=== PATIENT | male | born 1955 | race Caucasian/White ===

== ENCOUNTER 2021-03-23 14:08 | Emergency (ER) | payer OTHER, SELFPAY ==
[2021-03-23] VITALS (10 sets, daily range): BP systolic 111–165; BP diastolic 68–101; PULSE 67–86; RESP 12–26; TEMP 36.7; O2SAT 97–99
--- NOTE | ~2021-03-23 | CT_ITS ---
EXAMINATION: CT abdomen pelvis w con DATE: 03/23/2021 18:15 INDICATION: Intermittent abdominal pain. TECHNIQUE: Computed tomography (CT) of the abdomen and pelvis was performed with 100 mL Omnipaque 350 intravenous contrast. Automated exposure control and iterative reconstruction technique were employe d. The dose-length product was 930.76 mGy-cm. COMPARISON: CT abdomen and pelvis 12/04/2018, abdomen MRI 03/20/2018 FINDINGS: The visualized portions of the lung bases demonstrate mild atelectasis and mild emphysema. No pleural effusion. The heart size is normal. No pericardial effusion. Again seen is a 2.5 cm cyst i n the liver. The gallbladder, spleen, pancreas, and adrenal glands are normal. There are cysts in the kidneys measuring up to 8 mm on the right. The bladder is distended. The prostate is mildly enlarged . There are no dilated loops of bowel. The appendix is normal. There are changes of umbilical hernia repair. There are no pathologically enlarged lymph nodes. There is no free intraperitoneal fluid. The re is a total right hip arthroplasty. There is moderate lumbar spondylosis. IMPRESSION: 1. No etiology for the patient's symptoms. Reviewed, dictated and finalized at location A.
[2021-03-23 15:20] LABS: Basophils Absolute Auto 0.1 K/mm3 (0.0-0.1); Basophils Percent Auto 0.6 % (0.2-1.2); Eosinophils Absolute Auto 0.2 K/mm3 (0-0.3); Eosinophils Percent Auto 1.3 % (0-4.4); Hematocrit 53.5 % (42.0-52.0); Hemoglobin 18.3 g/dL (14.0-18.0); Immature Granulocyte Absolute 0.08 K/mm3 (0.00-0.031); Immature Granulocyte Percent A 0.7 % (0-0.5); Lymphocytes Absolute Auto 3.56 K/mm3 (0.9-3.2); Mean Corpuscular HGB Conc 34.2 g/dl (32-36); Mean Corpuscular Hemoglobin 31.6 pg (26-34); Mean Corpuscular Volume 92.4 fl (80-100); Mean Platelet Volume 10.6 fl (7.4-10.4); Monocytes Absolute Auto 0.9 K/mm3 (0.1-0.6); Monocytes Percent Auto 8.1 % (2.6-8.5); Neutrophils Absolute Auto 6.7 K/mm3 (1.3-6.7); Neutrophils Percent Auto 58.3 % (45.5-73.1); Platelet Count Result 232 k/mm3 (150-375); Red Blood Count 5.79 M/mm3 (4.6-6.20); Red Cell Distribution Width 11.9 % (11.5-14.5); White Blood Count 11.5 K/mm3 (4.5-10.0)
[2021-03-23 15:23] LABS: Add Urine Microscopic? YES; Appearance Urine Clear (Clear); Bilirubin Urine Negative (Negative); Blood Urine Negative (Negative); Color Urine Straw (Yellow); Glucose Urine UA 3+ mg/dL (Negative); Ketones Urine Negative (Negative); Leukocyte Esterase Ur Negative LEU/UL (Negative); Nitrate Urine Negative (Negative); Protein Urine Negative (Negative); RBC Urine 0-2 /hpf (0-2); Specific Grav Ur 1.028 (1.001-1.035); Squamous Epithelial Cell Urine Rare /hpf (Few); Urobilinogen Urine Negative mg/dL (<2.0); WBC Urine 0-3 /hpf
[2021-03-23 15:28] LABS: Alanine Aminotransferase 48 U/L (4-50); Albumin Level 4.3 g/dL (3.5-5.1); Alkaline Phosphatase 137 U/L (38-126); Anion Gap 9 mmol/L (8-16); Aspartate Amino Transferase 37 U/L (17-59); Bilirubin,Total 0.6 mg/dL (0.2-1.3); Blood Urea Nitrogen 17 mg/dL (9-20); Calcium 9.2 mg/dL (8.4-10.2); Carbon Dioxide 26 mmol/L (22-30); Chloride 98 mmol/L (98-107); Estimated CRCL calculation 96 ml/min; Estimated Glomerular Filt Rate > 60; Glucose 301 mg/dL (65-110); Lipase 60 U/L (23-300); Sodium 133 mmol/L (137-145)
--- NOTE | 2021-03-23 17:28 | ED.ABDPAIN ---
HPI - Abdominal Pain General Chief Complaint: Abdominal Pain Stated Complaint: Elevated Blood sugar Time Seen by Provider: 03/23/21 17:16 History of Present Illness HPI narrative: Patient is a 65-year-old male with history of insulin-dependent diabetes who comes abdominal pain complaining of abdominal pain. The abdominal pain has been present intermittently for last 2 weeks. It is located in the epigastric region and fairly constant and notes that he feels like he is bloated. No relation to p.o. intake. No nausea or vomiting. Admits to previous history of similar symptoms once before due to pancreatitis which was felt to be secondary to the Trulicity. He does not drink alcohol or use any illicit drugs. He denies any fevers. When asked about urinary symptoms he says that he has a hard time urinating but this has been present for a long time and he has a diagnosis of an enlarged prostate. Notes that his home blood sugars have been elevated for the last 3 weeks. He checks it every morning on average, has been as high as 400 at home. He is compliant with his home Jardiance and Toujeo. Notes that he takes oxycodone chronically for his chronic back pain and that is not helping with his current abdominal pain. Denies any known diarrhea or constipation. Related Data Home Medications Medication Instructions Recorded Confirmed amitriptyline 03/23/21 empagliflozin [Jardiance] mg 03/23/21 insulin glargine U-300 conc unit SUBCUT 03/23/21 [Toujeo SoloStar U-300 Insulin] oxycodone-acetaminophen 03/23/21 Allergies Allergy/AdvReac Type Severity Reaction Status Date / Time dulaglutide Allergy Unknown Unknown Verified 03/23/21 17:21 Review of Systems Constitutional: Constitutional: Reports as per HPI, Denies fever(s), Denies night sweats and Denies weakness Cardiovascular: Cardiovascular: Denies chest pain, Denies edema, Denies leg edema, Denies dyspnea and Denies orthopnea Respiratory: Respiratory: Denies cough and Denies dyspnea Gastrointestinal: Gastrointestinal: Reports abdominal pain, Reports bloating, Denies constipation, Denies diarrhea, Denies nausea and Denies vomiting Musculoskeletal: Musculoskeletal: Denies abnormal gait, Denies back pain, Denies numbness and Denies tingling Neurologic: Denies Abnormal speech present, Denies abnormal gait, Denies numbness, Denies tingling and Denies weakness Psychiatric: Psychiatric: Denies homicidal ideation and Denies suicidal ideation Endocrine: Endocrine: Reports as per HPI Exam Const: General: cooperative, healthy appearing, comfortable, no acute distress, well developed, alert, awake and Physically active Orientation/consciousness: patient oriented x3 HENMT: Head: normal to inspection, normocephalic and atraumatic Ears: external ears normal General nose exam: Normal external nose present Eyes: Pupils: Equal, round and reactive pupils present EOM: EOMs intact bilaterally Neck: Neck: normal visual inspection Chest: Chest palpation & inspection: normal inspection of the chest and no tenderness Resp: Effort & Inspection: normal respiratory effort and able to speak in complete sentences Auscultation: clear to auscultation bilaterally Cardio: Rate: regular rate Rhythm: regular rhythm GI: Inspection: normal to inspection GI Palp: Yes abdominal tenderness and Yes Tenderness to palpation present (GI) (Tender to palpate over epigastric region. No right upper quadrant tendernes) : General: Yes no CVA tenderness Back/Spine/Pelvis: Back: no CVA tenderness Skin: General skin exam: normal color and no rashes or lesions noted Lesions: no lesions Neuro: General: patient oriented x3, no focal motor deficits and CN's II-XI intact bilaterally Cranial nerves: Yes Equal, round and reactive pupils present Speech: No Abnormal speech present Extrem: General: normal to inspection and full ROM Psych: Appearance: grossly normal and well kempt Mental Status: mental status grossly normal
--- NOTE | 2021-03-23 18:01 | ECG_ITS ---
Measurements Intervals [place] Rate: 67 P: 36 [place]: 156 QRS: -54 QRSD: 110 T: 63 QT: 418 QTc: 444 Interpretive Statements SINUS RHYTHM INCOMPLETE RIGHT BUNDLE BRANCH BLOCK LEFT ANTERIOR FASCICULAR BLOCK BASELINE ARTIFACT- I, II, AVR, AVF, V1-V6 ABNORMAL ECG Electronically Signed On 03-23-2021 19:07:39 CDT by Papito Watson D.O.
[2021-03-23] MEDS: FAMOTIDINE 20 MG/2 ML VIAL IV PUSH (18:29)
[2021-03-23] MEDS: SIMETHICONE 80 MG TAB.CHEW PO (18:29)
[2021-03-23] MEDS: SUCRALFATE 1 GM TABLET PO (18:29)
[2021-03-23] MEDS: BELLADONNA ALK/PHENOB ELIX 10 ML, MAG HYDROX/ALUMINUM HYD/SIMETH 30 ML, LIDOCAINE HCL 2... PO (18:30)
[2021-03-23] MEDS: LACTATED RINGERS 1,000 ML 999 ML IV CONT (18:33)
[2021-03-23 18:52] LABS: Troponin I < 0.012 ng/mL (0.000-0.034)
--- NOTE | 2021-03-23 19:22 | PC.NURSE ---
Report received and care of pt assumed at this time.
== END 2021-03-23 21:33 | disposition home or self-care (01) ==
PROVIDERS: Emergency Medicine; Physician Assistant Medical; Emergency Provider General Practice; PCP Family Medicine
DX: R10.13 Epigastric pain (principal); K29.70 Gastritis, unspecified, without bleeding; E11.65 Type 2 diabetes mellitus with hyperglycemia; Z79.4 Long term (current) use of insulin; R94.31 Abnormal electrocardiogram [ECG] [EKG]
CPT/HCPCS: 36415; 74177; 80053; 81001; 83690; 84484; 85025; 93005; 96361; 96374; 99284; A9270; J7120; Q9967

== ENCOUNTER 2021-08-06 11:28 | Emergency (ER) | payer OTHER, SELFPAY ==
[2021-08-06] VITALS (7 sets, daily range): BP systolic 121–187; BP diastolic 89–103; PULSE 75–102; RESP 11–23; TEMP 36.6; O2SAT 96–99
--- NOTE | ~2021-08-06 | CT_ITS ---
EXAMINATION: CTA brain carotid EXAM DATE: 08/06/2021 12:11 INDICATION: Right-sided facial droop, hemiparesis. TECHNIQUE: Spiral CTA of the carotid arteries was performed with intravenous injection 100 cc of Om nipaque 350. Axial, coronal, sagittal reformatted images reviewed. Additional reformatted images cre ated on dedicated 3-D workstation. NASCET comparable standard used to assess the degree of arterial stenosis. Spiral CT angiogram cerebral arteries performed with the same intravenous injection of con trast. Source images of the brain CTA transferred to dedicated workstation for 3-D rotational image c reation. Coronal, sagittal maximum intensity pixel images also reviewed. The dose-length product (D LP) for this examination was 1105.98 mGy-cm. The exposure was tailored according to patient size, a nd iterative reconstruction (ASIR) was used as additional dose reduction technique. Correlation is ma de to noncontrast head CT earlier same date. FINDINGS: There is completely occluded left internal carotid artery with reconstitution at the skull base. There is moderate amount of right carotid bulb arterial sclerosis with 0% stenosis, arterioscle rosis, dated by the bulbs natural dilation. There is moderate bilateral carotid siphon arterial scler osis with moderate stenosis bilaterally. Venous contamination limiting cerebral branch arterial evalu ation. Some luxury perfusion surrounding the acutely infarcted left frontal lobe distribution. Mild s cattered cerebral atherosclerosis. No aneurysm identified. Incidental Findings: Small to moderate-sized acute left MCA distribution left frontal lobe infarction without hemorrhagic conversion. Moderate emphysema. Disc replacement at C4-5. IMPRESSION: 1. Small to moderate-sized acute left MCA, posterior frontal lobe infarction. 2. 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 3. Moderate right carotid bulb plaque with 0% stenosis. Reviewed, dictated and finalized at location G. ING MANAGER IMPRESSION: 1. Small to moderate-sized acute left MCA, posterior frontal lobe infarction. 2. Completely occluded left ICA from bifurcation the skull base, with reconsti tution. 3. Moderate right carotid bulb plaque with 0% stenosis.
--- NOTE | ~2021-08-06 | XR_ITS ---
XR chest 1V 08/06/2021 12:23 Indication: Stroke protocol. Procedure: AP portable chest Comparison: 06/18/2005 Findings: Heart size normal. Bibasilar atelectasis. No focal pneumonia, edema, pleural effusion or pn eumothorax. There are surgical changes of the clavicles. Impression: 1: Bibasilar atelectasis. Reviewed, dictated and finalized at location A. [employer] Impression: 1: Bibasilar atelectasis.
--- NOTE | ~2021-08-06 | CT_ITS ---
EXAMINATION: CT brain wo con EXAM DATE: 08/06/2021 11:29 INDICATION: Code stroke . Right facial droop, aphasia. TECHNIQUE: Spiral CT of the head was performed without contrast. Axial, coronal and sagittal images were reviewed. The dose-length product (DLP) for this examination was 605.33 mGy-cm. The exposure w as tailored according to patient size, and iterative reconstruction (ASIR) was used as additional dos e reduction technique. There is no prior study for comparison. FINDINGS: There is small to moderate-sized acute infarction in the left frontal lobe posteriorly, MCA distribution. No acute intracranial hemorrhage. No obstructive hydrocephalus, brain mass or extra-ax ial collections. IMPRESSION: Acute small to moderate-sized left frontal lobe infarction posteriorly. Reviewed, dictated and finalized at location G. ET HEADER IMPRESSION: Acute small to moderate-sized left frontal lobe infarction posteri mihir.
[2021-08-06 11:30] LABS: Glucose Point of Care 149 mg/dl (65-105)
--- NOTE | 2021-08-06 11:32 | ECG_ITS ---
Measurements Intervals [place] Rate: 86 P: 71 [place]: 154 QRS: -44 QRSD: 120 T: 86 QT: 384 QTc: 461 Interpretive Statements SINUS RHYTHM LEFT AXIS DEVIATION INTRAVENTRICULAR CONDUCTION DELAY BORDERLINE R WAVE PROGRESSION, ANTERIOR LEADS BORDERLINE ST-T WAVE ABNORMALITY- HIGH LATERAL LEADS BASELINE ARTIFACT- I, II, III, AVR, AVL, AVF, V1-V6 BORDERLINE ECG Electronically Signed On 08-06-2021 17:31:16 EMERGENCY DEPARTMENT MANAGER by Papito Watson D.O.
--- NOTE | 2021-08-06 11:39 | ED.NEUROSD ---
HPI - Neuro Symptoms/Deficit General Chief Complaint: Suspected CVA Stated Complaint: Code Stroke Source: patient Mode of arrival: EMS Limitations: no limitations History of Present Illness HPI Narrative: Patient is a 66-year-old male brought in by EMS due to right-sided facial droop, right-sided weakness and aphasia that started around 9 AM yesterday. Brother is at bedside and states that the event must of happened before 12 PM yesterday. Patient who is alert and oriented x3 states that symptoms started around 9 AM yesterday. Related Data Home Medications Medication Instructions Recorded Confirmed amitriptyline 03/23/21 empagliflozin [Jardiance] mg 03/23/21 insulin glargine U-300 conc unit SUBCUT 03/23/21 [Toujeo SoloStar U-300 Insulin] oxycodone-acetaminophen 03/23/21 Allergies Allergy/AdvReac Type Severity Reaction Status Date / Time dulaglutide Allergy Unknown Unknown Verified 03/23/21 17:21 Review of Systems Review of Systems: All systems reviewed & are unremarkable except as noted in HPI and below Constitutional: Constitutional: Denies body ache(s), Denies chills, Denies excessive sweating, Denies fatigue, Denies fever(s), Denies headache(s), Denies lethargy, Denies malaise and Denies weight loss Eyes: Eyes: Denies blurry vision, Denies change in vision and Denies loss of vision ENT: Denies dizziness, Denies ear discharge, Denies headache(s), Denies lip swelling, Denies epistaxis, Denies nasal congestion, Denies neck pain, Denies throat swelling and Denies tongue swelling Cardiovascular: Cardiovascular: Denies chest pain, Denies chest pain at rest, Denies chest pain with activity, Denies diaphoresis, Denies rapid heart rate, Denies edema, Denies irregular heart rhythm, Denies lightheadedness, Denies palpitations, Denies dyspnea and Denies dyspnea on exertion Respiratory: Respiratory: Denies chest congestion, Denies cough, Denies hemoptysis, Denies dyspnea and Denies dyspnea on exertion Gastrointestinal: Gastrointestinal: Denies abdominal pain, Denies melena, Denies hematochezia, Denies diarrhea, Denies nausea, Denies vomiting and Denies hematemesis Musculoskeletal: Musculoskeletal: Denies abnormal gait, Denies deformity, Denies joint swelling, Denies limited range of motion, Denies neck pain and Denies numbness Neurologic: Denies confusion, Denies dizziness, Denies headache(s), Denies loss of vision and Denies Other visual disturbances Psychiatric: Psychiatric: Denies confusion, Denies depression, Denies auditory hallucinations, Denies homicidal ideation and Denies suicidal ideation Endocrine: Endocrine: Denies cold intolerance, Denies excessive sweating, Denies fatigue, Denies heat intolerance and Denies palpitations Hematologic/Lymphatic: Hematologic/Lymphatic: Denies easy bleeding and Denies easy bruising Allergic/Immunologic: Allergic/Immunologic: Denies lip swelling, Denies throat swelling and Denies tongue swelling PMFSH Comments Past medical history: Diabetes Family history: Hypertension, diabetes Social history: Positive for smoker, no EtOH or drug use Exam Const: General: cooperative, healthy appearing, comfortable, no acute distress, well developed, alert and awake; No confusion Orientation/consciousness: oriented to person, oriented to place, oriented to time, patient oriented x3 and No confusion Limitations: no limitations HENMT: Head: normal to inspection, normocephalic and atraumatic Ears: hearing grossly normal bilaterally, TM normal on the right and TM normal on the left General nose exam: Normal external nose present, Normal nares present and No nasal discharge present Face and sinus: normal facial exam Mouth: Yes Normal oral and palatal mucosa present, Yes lip normal, Yes tongue normal and Yes oropharynx normal Throat: posterior oropharynx normal, tonsils normal and uvula midline Eyes: General: appearance normal, both eyes and all related structures Pupils: Equal, round and reacti
[2021-08-06 12:20] LABS: Basophils Absolute Auto 0.1 K/mm3 (0.0-0.1); Basophils Percent Auto 0.5 % (0.2-1.2); Eosinophils Absolute Auto 0.1 K/mm3 (0-0.3); Eosinophils Percent Auto 0.6 % (0-4.4); Hematocrit 50.8 % (42.0-52.0); Hemoglobin 17.2 g/dL (14.0-18.0); Immature Granulocyte Absolute 0.04 K/mm3 (0.00-0.031); Immature Granulocyte Percent A 0.3 % (0-0.5); Lymphocytes Absolute Auto 2.64 K/mm3 (0.9-3.2); Lymphocytes Percent Auto 22.9 % (18.3-44.2); Mean Corpuscular HGB Conc 33.9 g/dl (32-36); Mean Corpuscular Hemoglobin 31.7 pg (26-34); Mean Corpuscular Volume 93.7 fl (80-100); Mean Platelet Volume 9.7 fl (7.4-10.4); Monocytes Absolute Auto 0.8 K/mm3 (0.1-0.6); Monocytes Percent Auto 7.1 % (2.6-8.5); Neutrophils Absolute Auto 7.9 K/mm3 (1.3-6.7); Neutrophils Percent Auto 68.6 % (45.5-73.1); Platelet Count Result 231 k/mm3 (150-375); Red Blood Count 5.42 M/mm3 (4.6-6.20); Red Cell Distribution Width 12.5 % (11.5-14.5); White Blood Count 11.5 K/mm3 (4.5-10.0)
[2021-08-06 12:30] LABS: Prothrombin Time 12.9 Seconds (11.1-14.7)
[2021-08-06 12:31] LABS: Partial Thromboplastin Time 32.5 SECONDS (22.3-36.8)
[2021-08-06 12:33] LABS: Alanine Aminotransferase 39 U/L (4-50); Albumin Level 3.9 g/dL (3.5-5.1); Alkaline Phosphatase 81 U/L (38-126); Anion Gap 14 mmol/L (8-16); Aspartate Amino Transferase 33 U/L (17-59); Bilirubin,Total 0.7 mg/dL (0.2-1.3); Blood Urea Nitrogen 14 mg/dL (9-20); Carbon Dioxide 20 mmol/L (22-30); Chloride 101 mmol/L (98-107); Estimated CRCL calculation 116 ml/min; Estimated Glomerular Filt Rate > 60; Glucose 135 mg/dL (65-110); Potassium 3.9 mmol/L (3.4-5.0); Sodium 135 mmol/L (137-145)
[2021-08-06 12:44] LABS: Troponin I < 0.012 ng/mL (0.000-0.034)
--- NOTE | 2021-08-06 14:27 | PC.NURSE ---
[facility] accepted transfer ETA 16min Trip # [id number]
--- NOTE | 2021-08-06 14:28 | PC.NURSE ---
Patient care report called to [facility] transfer center. All questions answered at this time. Patient to be transferred with lights and sirens for time critical diagnosis. Patient aware and consents to transfer.
--- NOTE | 2021-08-06 14:45 | PC.NURSE ---
Patient care report given to EMS crew. Transfer papers, including facesheet, transfer authorization, imaging reports, labs, notes, and all other medical records from today's visit. CD also sent with EMS crew to [facility] ED. Patient ambulated to ED stretcher, loaded on stretcher and left in care of EMS crew.
== END 2021-08-06 14:44 | disposition short-term general hospital (02) ==
PROVIDERS: Emergency Provider Emergency Medicine; PCP Family Medicine
DX: I63.9 Cerebral infarction, unspecified (principal); R29.707 NIHSS score 7; E11.9 Type 2 diabetes mellitus without complications; F17.200 Nicotine dependence, unspecified, uncomplicated; I45.9 Conduction disorder, unspecified; R94.31 Abnormal electrocardiogram [ECG] [EKG]; Z79.4 Long term (current) use of insulin; Z79.84 Long term (current) use of oral hypoglycemic drugs
CPT/HCPCS: 36415; 70450; 70496; 70498; 71045; 80053; 82948; 84484; 85025; 85610; 85730; 93005; 99285; Q9967

== ENCOUNTER 2022-01-24 14:52 | Emergency (ER) | payer OTHER, SELFPAY ==
--- NOTE | 2022-01-24 15:01 | ED.SKABFB ---
HPI - Skin/Abscess/Foreign Bdy General Chief complaint: Skin/Abscess/Foreign Body Stated complaint: Insect bite on back Time Seen by Provider: 01/24/22 15:27 Source: patient and RN notes reviewed Mode of arrival: ambulatory Limitations: no limitations History of Present Illness HPI narrative: 66-year-old male presents with concern for possible insect bite to his back. He noticed it approximately 8 days ago. Reports he was fishing in [place]. He denies removing a tick. He denies general malaise, fever. He reports the area is slightly itchy and slightly tender. Reports is gotten slightly larger over the last couple of days. He denies trouble breathing, swollen lips, swollen tongue. MD complaint: rash Related Data Home Medications Medication Instructions Recorded Confirmed amitriptyline 10 mg tablet 10 mg PO DAILY 03/23/21 01/24/22 empagliflozin 25 mg tablet 25 mg PO DAILY 03/23/21 01/24/22 (Jardiance) insulin glargine U-300 conc 300 6 unit subcut DIRECTED 03/23/21 01/24/22 unit/mL (1.5 mL) subcutaneous pen (Toujeo SoloStar U-300 Insulin) oxycodone-acetaminophen 7.5 mg-325 1 tablet PO DIRECTED 03/23/21 01/24/22 mg tablet atorvastatin 40 mg tablet 1 tablet PO DAILY 01/24/22 01/24/22 perindopril erbumine 4 mg tablet 1 tablet PO DAILY 01/24/22 01/24/22 rivaroxaban 2.5 mg tablet (Xarelto) 1 tablet PO DAILY 01/24/22 01/24/22 Allergies Allergy/AdvReac Type Severity Reaction Status Date / Time dulaglutide Allergy Unknown Unknown Verified 01/24/22 15:25 Review of Systems Review of Systems: CONSTITUTIONAL: Denies malaise, chills, sweats, or fever. EYES: Denies redness, or discharge. ENT: Denies rhinorrhea, congestion, swollen lips, swollen tongue CARDIOVASCULAR: Denies chest pain, palpitations, or edema. RESPIRATORY: Denies cough or dyspnea. GASTROINTESTINAL: Denies abdominal pain, nausea, vomiting SKIN: Reports mildly itchy, tender bite to his back MUSCULOSKELETAL: Denies joint pain or myalgia. NEUROLOGIC: Denies headache. All systems reviewed & are unremarkable except as noted in HPI and below PMFSH Comments At time of signature, agree with nursing past medical, surgical, social and family history. There is no relevant family history pertinent to the presenting complaint Exam Narrative: GENERAL: Well-appearing, well-nourished, and in no acute distress. HEAD: Normocephalic, atraumatic. EYES: PERRLA, conjunctivae clear, and EOMI. ENT: Mucous membranes moist. Oropharynx without edema, erythema or lesions. NECK: Supple. No lymphadenopathy CHEST: Clear to auscultation. No respiratory distress. HEART: Regular rate and rhythm. SKIN: Warm, dry. Proximately 3 cm area of raised erythematous skin with papules and central scab, mildly tender to touch. No surrounding induration, erythema, edema noted, no fluctuation noted NEURO: Alert and oriented x3. PSYCH: Normal mood and affect Course Course Emergency Course: Patient is aware of diagnosis, understands and agrees to treatment plan. Anticipatory guidance given. Patient agrees to follow-up as directed and is aware of reasons to seek care at the emergency department. Portions of this record may have been created with voice recognition software Level of Care: Express Care Visit Vital Signs Vital signs: Reviewed. MDM - Skin/Abscess/Foreign Bdy MDM Narrative Medical decision making narrative: Does not appear at this time to be erythema multiforme, bullous, SJS, TEN; no evidence at this time to suggest RMSF, endocarditis or Lyme disease; patient looks well, nontoxic and is tolerating oral intake; no neurologic signs or symptoms; no headache, photophobia or neck pain; afebrile; appropriate for initial outpatient treatment; discussed the importance of follow-up, patient agrees; question, viral exanthema, contact dermatitis, allergic dermatitis, eczema, urticaria, insect bite, shingles, tinea. No soft palate or uvula edema, no tongue, lip edema or other mucosal
[2022-01-24 15:25] VITALS: BP 106/61; PULSE 81; RESP 18; TEMP 36.6; O2SAT 96
== END 2022-01-24 15:57 | disposition home or self-care (01) ==
PROVIDERS: Emergency Provider Nurse Practitioner; PCP Family Medicine
DX: R21 Rash and other nonspecific skin eruption (principal); I10 Essential (primary) hypertension; K21.9 Gastro-esophageal reflux disease without esophagitis; E11.9 Type 2 diabetes mellitus without complications; Z86.73 Personal history of transient ischemic attack (TIA), and cerebral infarction without residual deficits
CPT/HCPCS: 99213; G0463

== ENCOUNTER 2023-05-23 08:03 | Outpatient (CLI) | payer OTHER, SELFPAY ==
--- NOTE | ~2023-05-23 | US_ITS ---
EXAMINATION: US carotid duplex BI DATE: 05/23/2023 12:04 INDICATION: Right middle artery branch occlusion TECHNIQUE: Grayscale, color Doppler, and pulsed Doppler images of the cervical carotid arteries were obtained. The degree of vessel stenosis is placed in one of the following categories: normal, <50%, 5 0-69%, >=70% but less than near-occlusion, near-occlusion, or total occlusion. Note that percent sten osis relative to normal distal artery lumen diameter is indirectly measured from velocity measurement s as described by Chi, et al. Radiology 2003; 229:340-346. Notes: Normal: Peak systolic velocity <125 centimeters/sec and no plaque <50%. Peak systolic velocity <125 ( EDV <40; ICA/CCA PSV ratio <2.0; used these factors only a tandem lesions or low cardiac output or co ntralateral disease) 50-69 %: PSV 125-230 (EDV 40-100; ratio 2-4) >= 70% but less than near occlusion: PSV greater than 230 (EDV > 100; ratio> 4.0) Near Occlusion: PSV that is variable; markedly narrowed lumen Occlusion: Absent flow on color/spectral Doppler and no lumen on paul scale. COMPARISON: None. FINDINGS: RIGHT: The right common carotid artery (CCA) peak systolic velocity (PSV) is 120 cm/s. The right internal ca rotid artery (ICA) PSV is 76 cm/s. The right ICA end-diastolic velocity (EDV) is 29 cm/s. The right I CA/CCA PSV ratio is 0.6. The external carotid artery (ECA) PSV is 132 cm/s. There is antegrade flow i n the right vertebral artery. LEFT: The left CCA PSV is 127 cm/s. The left internal carotid artery is occluded without flow. The ECA PSV is 239 cm/s. There is antegrade flow in the left vertebral artery. IMPRESSION: 1. Less than 50% stenosis in the right internal carotid artery by sonographic criteria. 2. Occluded left internal carotid artery. Reviewed, dictated and finalized at location B. IMPRESSION: 1. Less than 50% stenosis in the right internal carotid artery by sonographic geovany gant. 2. Occluded left internal carotid artery.
== END 2023-05-23 08:04 | disposition home or self-care (01) ==
PROVIDERS: PCP Family Medicine
DX: H34.232 Retinal artery branch occlusion, left eye (principal); I65.23 Occlusion and stenosis of bilateral carotid arteries
CPT/HCPCS: 93880

== ENCOUNTER 2023-12-04 08:00 | Outpatient (CLI) | payer OTHER, SELFPAY ==
--- NOTE | ~2023-12-04 | XR_ITS ---
EXAMINATION: XR UGIAC w barium swallow DATE: 12/04/2023 09:16 INDICATION: Oropharyngeal dysphagia. TECHNIQUE: The patient drank thick barium, gas-producing crystals, and thin barium. Fluoroscopy of th e esophagus, stomach, and proximal small bowel was performed. Fluoroscopy exposure time was 0.8 minut es. The total number of images was 492. Total dose-area product was 2.58 Gy-cm^2. COMPARISON: CT abdomen and pelvis 03/23/2021 FINDINGS: There is some aspiration of liquid. There is no mass or stricture of the esophagus. Esophag eal motility is normal. There is no hiatal hernia. There was no gastroesophageal reflux with provocat reza maneuvers. The stomach and proximal small bowel show normal folding patterns. There are changes o f anterior fusion procedure in cervical spine. IMPRESSION: 1. Aspiration. Reviewed, dictated and finalized at location A. IMPRESSION: 1. Aspiration.
--- NOTE | ~2023-12-04 | XR_ITS ---
EXAMINATION: XR barium swallow modified DATE: 12/04/2023 09:32 INDICATION: Dysphagia, oropharyngeal phase. TECHNIQUE: The patient was given barium-containing material of multiple consistencies to swallow by t dora speech pathologist while I performed fluoroscopy. Fluoroscopy exposure time was 1.5 minutes. The n umber of fluoroscopy images saved to the PACS was 1. Dose-area product was 0.969 Gy-cm^2. FINDINGS: There is reduced laryngeal elevation. There is laryngeal penetration and aspiration. IMPRESSION: 1. Laryngeal penetration and aspiration. 2. Please refer to the speech therapy report for recommendations. Reviewed, dictated and finalized at location A.
--- NOTE | 2023-12-05 16:08 | REHSTMBS ---
Assessment and note entered by Cass Costello, TECHNICAL SUPPORT ENGINEER Modified Barium Swallow Evaluation Feeding Type Recommended Oral Food Consistency Regular, Level 7 Liquid Consistency Mildly Thick (2) Treatment Recommendations Effortful Swallow,Laryngeal Elevation Exerc,Tongue Base Exercise ST Clinical Summary MODIFIED BARIUM SWALLOW STUDY Patient was seen for a Modified Barium Swallow study at the request of his physician. Patient reports a history of CVA but says currently he feels food hanging up in the upper portion of the pharynx, causing him to choke and expectorate the food or liquid. He reported that salad takes forever to consume. Patient was viewed in the lateral position to the level of C5/C6. Patient was presented with thin liquid contrast medium, mildly thick liquid contrast medium, pudding mixed with contrast medium, and duke cracker piece and fruit cocktail pieces both coated with the semi-solid mixture. He exhibited adequate mastication and swallowing for all material except for mild penetration on uncontrolled thin liquid contrast medium, which he avoided with mildly thick liquid. Head flexion did not prevent penetration. True aspiration was not observed today but expected. Results suggest the patient may remain on a Regular Diet however he would benefit from Mildly ([place]) Thick Liquids at this time and he was instructed in how to use them. He voiced understanding and stated he would purchase some. This therapist spoke to patient about outpatient Speech Therapy for strengthening exercises and compensatory strategies and patient was in agreement with this recommendation. Please order outpatient Speech Therapy by sending order to [facility] and patient can be scheduled. Thank you for this referral.
== END 2023-12-04 08:01 | disposition home or self-care (01) ==
PROVIDERS: PCP Family Medicine; Visit Provider Nurse Practitioner
DX: R13.12 Dysphagia, oropharyngeal phase (principal)
CPT/HCPCS: 74246; 92611

== ENCOUNTER 2024-03-31 10:04 | Observation (INO) | payer OTHER, SELFPAY ==
[2024-03-31] VITALS (10 sets, daily range): BP systolic 137–191; BP diastolic 69–85; PULSE 58–102; RESP 12–24; TEMP 36.6–36.8; O2SAT 95–100; BMI 24.5
--- NOTE | ~2024-03-31 | CT_ITS ---
CT brain wo con Ordering provider: Rafael Corey MD History: 69 years Male with . right arm numbness . Comparison: None. Technique: CT of the head without contrast. Radiation reduction technique utilized. DLP is 605.33 mGy-cm. FINDINGS: BRAIN PARENCHYMA AND CSF SPACES: Mild leukoaraiosis and diffuse cortical atrophy. Mild atheromatous d isease. Old infarct in the left frontal lobe with encephalomalacia. No midline shift, mass effect or hemorrhage. The brain parenchyma and CSF spaces are otherwise normal. VISUALIZED PARANASAL SINUSES: Well aerated. MASTOIDS: Well aerated. BONES: The bones appear intact. SOFT TISSUES: Visualized nasopharynx is normal. Superficial soft tissues are normal. IMPRESSION: Old infarct in the left frontal lobe. No definite acute infarct. If still suspicious is MRI is advise d. No evidence of hemorrhage seen Reviewed, dictated and finalized at location A. IMPRESSION: Old infarct in the left frontal lobe. No definite acute infarct. If still suspi cious is MRI is advised. No evidence of hemorrhage seen
--- NOTE | ~2024-03-31 | CT_ITS ---
CTA brain carotid Ordering provider: Rafael Corey MD History: . Right upper extremity numbness . Comparison: None. Technique: CT angiogram head was performed following timed intravenous injection of contrast. Thin sl ice axial images and reformatted coronal images were obtained. Three dimensional reformatted images o f the brain were also obtained using a [employer] workstation. Radiation reduction technique utilized. D LP is 1136.31 mGy-cm. 100 mL Omnipaque 350 was given IV. FINDINGS: --ANTERIOR AND MIDDLE CEREBRAL ARTERIES AND BRANCHES: Normal caliber and contour. --INTERNAL CAROTID ARTERIES: Total occlusion of the left carotid artery in the cavernous sinus in the petrous area and also the visualized distal cervical portion of the carotid artery.. --BASILAR ARTERY AND BRANCHES: Normal caliber and contour. No atheromatous disease. --POSTERIOR CEREBRAL ARTERIES: Normal caliber and contour --POSTERIOR COMMUNICATING ARTERIES: Not visualized which is probably related to congenital absence or small size. Anterior communicating arteries noted. --ANEURYSM: None visualized. --BRAIN: Please refer to report of CT head performed the same day. --BONES AND SUPERFICIAL SOFT TISSUES: Please refer to report of CT head performed the same day. --PARANASAL SINUSES AND MASTOIDS: Please refer to report of CT head done the same day. IMPRESSION: Occlusion of the left internal carotid artery above the bifurcation of the common carotid artery. No aneurysmal dilatation seen. Anterior communicating artery is noted. The posterior communicating arteries are not demonstrated. CTA brain carotid Ordering provider: Rafael Corey MD History: . Right upper extremity numbness . Comparison: None. Technique: CT angiogram neck was performed following timed intravenous injection of contrast. Thin sl ice axial images and reformatted coronal images were obtained. Three dimensional reformatted images o f the neck were also obtained using a [employer] workstation. Automated exposure control and iterative re construction technique were employed. The dose-length product was 1136.31 mGy-cm. FINDINGS: RIGHT CERVICAL CAROTID ARTERY: Mild atheromatous disease of the carotid bulb and proximal internal ca rotid artery without significant stenosis. Percent stenosis per NASCET criteria is 50%. No carotid di ssection. Otherwise, no significant atheromatous disease or stenosis of the cervical carotid system. LEFT CERVICAL CAROTID ARTERY: Complete occlusion of the left internal carotid artery. VISUALIZED BILA TERAL INTRACRANIAL CAROTID ARTERIES: VERTEBRAL BASILAR SYSTEM: Normal caliber and contour VISUALIZED AORTIC ARCH AND BRANCHING VESSELS: Mild atheromatous disease but no significant stenosis. SOFT TISSUES: Normal. Fibrotic and emphysematous changes of the lungs. Slightly enlarged left hilar lymph nodes. Small nodu les in both thyroid lobes. CERVICAL SPINE: Age appropriate degenerative changes. IMPRESSION: Complete occlusion of the left internal carotid artery. The right is narrowed by about. Percent steno sis per NASCET criteria is 50%. Fibrotic changes of the lungs. Reviewed, dictated and finalized at location A. IMPRESSION: Occlusion of the left internal carotid artery above the bifurcation of the comm on carotid artery. No aneurysmal dilatation seen. Anterior communicating artery is noted. The posterior communicating arteries ar e not demonstrated. CTA brain carotid Ordering provider: Rafael Corey MD History: . Right upper extremity numbness . Comparison: None. Technique: CT angiogram neck was performed following timed intravenous injectio n of contr
--- NOTE | ~2024-03-31 | MR_ITS ---
EXAMINATION: MR cervical spine wo con DATE: 04/01/2024 13:24 INDICATION: Upper extremity numbness TECHNIQUE: Magnetic resonance imaging (MRI) of the cervical spine was performed without intravenous c ontrast. Sequences included sagittal T2-weighted FSE, sagittal T2-weighted FS FSE, sagittal T1-weight ed FSE, axial MERGE and axial T2-weighted FSE. COMPARISON: Cervical spine CT dated 09/09/2008 FINDINGS: Bone alignment is normal. Vertebral body heights are normal. There is magnetic field artifact associ ated with a metallic interbody fusion device at C4-C5. Marrow signal is otherwise normal. Mild disc h eight loss at C2-C3 and C3-C4. Cord signal intensity is normal. The visualized cervical soft tissues are unremarkable. The following disc levels are specifically discussed: C2-C3: The disc does not extend beyond the endplate margin. There is minimal bilateral uncovertebral joint osteoarthritis. There is mild bilateral facet joint osteoarthritis. There is no neural foramina l stenosis. There is no central canal stenosis. C3-C4: Disc is bulging with superimposed annular fissure and small central disc protrusion which mild ly indents the central ventral surface of the cord. There is mild bilateral uncovertebral joint osteo arthritis. There is mild right and moderate left facet joint osteoarthritis. There is mild bilateral neural foraminal stenosis. There is mild central canal stenosis. C4-C5: Status post discectomy with mild right and moderate left sided hypertrophic change at the unco vertebral joints. There is mild bilateral facet joint osteoarthritis. There is mild bilateral neural foraminal stenosis. There is mild central canal stenosis. C5-C6: Disc is bulging. There is moderate bilateral uncovertebral joint osteoarthritis. There is mode rate left and severe right facet joint osteoarthritis. There is moderate bilateral neural foraminal s tenosis. There is moderate central canal stenosis measuring 6 mm AP with deformation of the cord whic h appears narrowed AP and widened left to right. C6-C7: The disc does not extend beyond the endplate margin. There is mild right and moderate left unc overtebral joint osteoarthritis. There is mild left and moderate right facet joint osteoarthritis. Th ere is mild bilateral neural foraminal stenosis. There is no central canal stenosis. C7-T1: The disc does not extend beyond the endplate margin. There is no uncovertebral joint osteoarth ritis. There is severe bilateral facet joint osteoarthritis. There is mild bilateral neural foraminal stenosis. There is no central canal stenosis. IMPRESSION: 1. Mild cervical spondylosis most notable for moderate central canal and neural foraminal stenosis at C5-C6 and instrumented anterior fusion at C4-C5. Reviewed, dictated and finalized at location B.
--- NOTE | ~2024-03-31 | MR_ITS ---
EXAMINATION: MR brain/brain stem wo/w con DATE: 04/01/2024 13:23 INDICATION: Right upper limb numbness and weakness. TECHNIQUE: Magnetic resonance imaging (MRI) of the brain and brainstem was performed without and with 15 mL MultiHance intravenous contrast. COMPARISON: Head CT 03/31/2024 FINDINGS: There is an old infarct involving left frontal and parietal lobes, left insula, and the lef t basal ganglia. There are small old infarcts in the left occipital lobe. There is no intracranial he morrhage, acute infarction, or abnormal intracranial mass lesion. There is ex vacuo dilatation of bod y of left lateral ventricle. The orbits are normal. There is mild mucosal thickening in the paranasal sinuses. The orbits are normal. IMPRESSION: 1. Old infarcts involving the left frontal, parietal, and occipital lobes, left insula, and left basa l ganglia. Reviewed, dictated and finalized at location A. IMPRESSION: 1. Old infarcts involving the left frontal, parietal, and occipital lobes, left insula, and left basal ganglia.
--- NOTE | ~2024-03-31 | XR_ITS ---
EXAMINATION: XR chest 1V DATE: 03/31/2024 10:28 INDICATION: Right arm weakness and numbness. TECHNIQUE: A single frontal view of the chest was obtained. COMPARISON: Chest single view 08/06/2021 FINDINGS: There is no pneumonia, pleural effusion, or pneumothorax. The heart size is normal. IMPRESSION: 1. No acute cardiopulmonary disease. Reviewed, dictated and finalized at location A.
[2024-03-31 10:13] LABS: Glucose Point of Care 236 mg/dl (65-105)
--- NOTE | 2024-03-31 10:13 | ECG_ITS ---
Test Date: 2024-03-31 10:10:50 Measurements Intervals [place] Rate: 105 P: 64 NM: 140 QRS: -56 QRSD: 122 T: 96 QT: 336 QTc: 445 Interpretive Statements SINUS TACHYCARDIA LEFT ANTERIOR FASCICULAR BLOC RSR' IN V1 OR V2, RIGHT VCD OR RVH BASELINE ARTIFACT- I, II, III, AVR, AVL, V1-V3 ABNORMAL ECG No previous ECG available for comparison Electronically Signed On 03-31-2024 10:41:05 CDT by Papito Watson D.O.
[2024-03-31 10:24] LABS: Basophils Absolute Auto 0.1 K/mm3 (0.0-0.1); Basophils Percent Auto 0.6 % (0.2-1.2); Eosinophils Absolute Auto 0.2 K/mm3 (0-0.3); Eosinophils Percent Auto 1.7 % (0-4.4); Hematocrit 54.9 % (42.0-52.0); Hemoglobin 18.8 g/dL (14.0-18.0); Immature Granulocyte Absolute 0.05 K/mm3 (0.00-0.031); Immature Granulocyte Percent A 0.5 % (0-0.5); Lymphocytes Absolute Auto 3.77 K/mm3 (0.9-3.2); Lymphocytes Percent Auto 37.8 % (18.3-44.2); Mean Corpuscular HGB Conc 34.2 g/dl (32-36); Mean Corpuscular Hemoglobin 33.6 pg (26-34); Mean Platelet Volume 10.1 fl (7.4-10.4); Monocytes Absolute Auto 0.9 K/mm3 (0.1-0.6); Monocytes Percent Auto 9.4 % (2.6-8.5); Platelet Count Result 214 k/mm3 (150-375); Red Cell Distribution Width 12.3 % (11.5-14.5)
[2024-03-31 10:41] LABS: INR 0.9; Partial Thromboplastin Time 33.2 Seconds (22.3-36.8); Prothrombin Time 12.6 Seconds (11.1-14.7)
[2024-03-31 10:43] LABS: Alanine Aminotransferase 64 U/L (6-50); Albumin Level 4.3 g/dL (3.5-5.1); Alkaline Phosphatase 136 U/L (38-126); Anion Gap 10 mmol/L (4-12); Aspartate Amino Transferase 58 U/L (17-59); Bilirubin,Total 0.5 mg/dL (0.2-1.3); Blood Urea Nitrogen 20 mg/dL (9-20); Carbon Dioxide 30 mmol/L (22-30); Chloride 97 mmol/L (98-107); Estimated CRCL calculation 102 ml/min; Estimated Glomerular Filt Rate > 60; Glucose 237 mg/dL (65-110); Potassium 3.9 mmol/L (3.4-5.0); Sodium 137 mmol/L (137-145)
[2024-03-31 10:55] LABS: Troponin I < 0.012 ng/mL (0.000-0.034)
--- NOTE | 2024-03-31 11:40 | ED.GENADULT ---
HPI - General Adult General Chief complaint: Extremity Injury, Upper Stated complaint: right arm numb Time Seen by Provider: 03/31/24 10:16 History of Present Illness HPI narrative: Patient is a 69-year-old gentleman who presents emergency department with chief complaint of numbness and clumsiness of the right hand the patient reports that he woke up with the symptoms yesterday morning and his last known well was at 1:00 a.m. on Sunday. The patient reports symptoms have been ongoing since he woke up on Sunday and have been progressing. 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 Related Data Home Medications Medication Instructions Recorded Confirmed amitriptyline 10 mg tablet 10 mg PO DAILY 03/23/21 02/18/24 empagliflozin 25 mg tablet 25 mg PO DAILY 03/23/21 02/18/24 (Jardiance) oxycodone-acetaminophen 7.5 mg-325 1 tablet PO DIRECTED 03/23/21 02/18/24 mg tablet atorvastatin 40 mg tablet 1 tablet PO DAILY 01/24/22 02/18/24 perindopril erbumine 4 mg tablet 1 tablet PO DAILY 01/24/22 02/18/24 Aspir-81 81 mg PO DAILY 02/18/24 02/18/24 insulin aspart U-100 100 unit/mL 8 unit subcut DAILY 02/18/24 02/18/24 (3 mL) subcutaneous pen insulin glargine U-300 conc 300 10 unit subcut DAILY 02/18/24 02/18/24 unit/mL (1.5 mL) subcutaneous pen (Toujeo SoloStar U-300 Insulin) tizanidine 4 mg tablet 4 mg PO TID 02/18/24 02/18/24 Allergies Allergy/AdvReac Type Severity Reaction Status Date / Time dulaglutide Allergy Unknown Unknown Verified 11/06/23 14:37 Review of Systems Review of Systems: A 10 system review of systems was completed on the patient and is negative except for what is stated in the HPI. Nursing and ancillary documentation was reviewed. [facility] Social History Social History Smoking packs per day: 1.5 Smoking cigarettes per day: 30.0 Years smoked: 35 Smoking pack-years: 52.50 Smoking status: Current every day smoker Tobacco type: cigarettes Alcohol intake: former Alcohol use details: quit 2 years ago Substance use: current Substance use type: opiates Living arrangements: alone Spiritual care concerns: No Exam Narrative: GENERAL: Well-appearing, well-nourished, and in no acute distress. HEAD: Normocephalic, atraumatic. EYES: PERRLA and EOMI. ENT: Nares clear, no rhinorrhea or epistaxis. Mucous membranes moist. NECK: Supple. CHEST: Clear to auscultation. No respiratory distress. HEART: Regular rate and rhythm. No murmur heard. Normal peripheral pulses. ABDOMEN: Soft, nontender, nondistended, normal active bowel sounds. EXTREMITIES: Normal range of motion slight decrease in sensation on the right upper extremity. No edema. SKIN: Warm, dry, no rash. NEURO: No focal deficits. Alert and oriented x3. PSYCH: Normal mood and affect. Course Vital Signs Vital signs: Vital Signs Temperature 36.6 C 03/31/24 10:08 Pulse Rate 102 H 03/31/24 10:08 Respiratory Rate 18 03/31/24 10:08 Blood Pressure 191/85 H 03/31/24 10:08 Pulse Oximetry 99 03/31/24 10:08 Oxygen Delivery Room Air 03/31/24 10:08 Temperature 36.6 C 03/31/24 10:08 Pulse Rate 64 03/31/24 13:58 Respiratory Rate 13 03/31/24 13:58 Blood Pressure 150/77 H 03/31/24 13:58 Pulse Oximetry 98 03/31/24 13:58 Oxygen Delivery Room Air 03/31/24 10:08 Medical Decision Making [facility] Narrative Medical decision making narrative: Differential diagnosis includes cervical radiculopathy, CVA, TIA, CT head showed no evidence of acute hemorrhage there was evidence of Old infarct in the left frontal lobe. No definite acute infarct. If still suspicious is MRI is advised. No evidence of hemorrhage seen Laboratory studies were obtai
--- NOTE | 2024-03-31 15:20 | ADMGEN ---
This patient, Ryan Ortega, was admitted to Medical Room 244-. Patient/family oriented to hospital policies and general routines including ID bracelet, bed and alarms, visiting hours, pain management, procedures, bathroom and other care routines, personal items, smoking policy, room service/diet, and visiting hours. Information on how to activate the Rapid Response Team has been discussed. Patient/Family are encouraged to report perceived risks to care and to ask questions if they do not understand what they are told or what they should do.
[2024-03-31 16:42] LABS: Glucose Point of Care 141 mg/dl (65-105)
[2024-03-31 23:04] LABS: Glucose Point of Care 154 mg/dl (65-105)
--- NOTE | 2024-03-31 23:06 | PM.IMHP ---
H&P: HPI History of Present Illness Date/Time: 03/31/24 23:05 Chief Complaint: Right arm numbness. Narrative: This is a pleasant 69-year-old male with history of stroke, chronic occlusion of the left internal carotid artery, hypertension, hyperlipidemia, and insulin-dependent type 2 diabetes mellitus who presented to the emergency department via private vehicle for evaluation of right upper extremity numbness. The patient provides the following history. He went to bed at about 01:00 on Sunday morning. Upon waking later that day his right arm felt numb and he had troubles picking things up, almost as if it was not his own arm. This is the same arm that was affected in his previous stroke however function had returned to near normal. On exam he has pain on palpation of the right cervical paraspinous muscles which is not necessarily unusual for him. He has not had any recent falls or injuries. He also denies vertigo, vision changes, facial droop, and difficulty speaking and swallowing. At the time my evaluation his symptoms seem to be improving. In the ED: Blood pressure was as high as 191/85 in the ED but has improved. Labs were significant for WBC count of 18.8, glucose 237, ALT 64. Head CT showed old infarct in left frontal lobe. CTA of the head and neck showed complete occlusion of the left internal carotid artery with mild atheromatous disease of the right carotid bulb and proximal internal carotid artery without significant stenosis. Chest x-ray showed no acute cardiopulmonary disease. He is being admitted in this setting for close monitoring and neurology consultation. Review of Systems Review of Systems: 12 systems were reviewed and are negative except for as per HPI. [facility] Past Medical History Medical History (Updated 03/31/24 @ 23:51 by Holly Bain PA-C) Cerebrovascular accident (2021) Residual right arm weakness. Hyperlipidemia Hypertension Occlusion of left internal carotid artery Pancreatitis (2020) Type 2 diabetes mellitus with insulin therapy Surgical History Surgical History (Updated 03/31/24 @ 23:12 by Holly Bain PA-C) History of colonoscopy with polypectomy History of open reduction and internal fixation (ORIF) procedure Right leg. History of spinal surgery History of total right hip arthroplasty Family History Family History Mother Old age Father Lung cancer Sibling Diabetes mellitus Social History Social History (Updated 03/31/24 @ 23:12 by Holly Bain PA-C) Social History: Surrogate medical decision maker: Petey Ortega, sibling. Code status: Full code. Smoking packs per day: 1.5 Smoking cigarettes per day: 30.0 Years smoked: 35 Smoking pack-years: 52.50 Smoking status: Former smoker Tobacco type: cigarettes Smoking end date: 07/22/12 Alcohol intake: never Alcohol use details: quit 2 years ago Substance use: never Substance use type: does not use Do You Feel Safe in your Home?: Yes Lack of Transportation: No Lack of Food: Never True Current Housing: I Have Housing Concerned About Future Housing: No Difficulty Paying Gas/Electric Bills: No Difficulty Paying for Meds: No Currently Unemployed: No Education: High School Diploma/GED Difficulty w/ Childcare or Family Care: No Living arrangements: alone Spiritual care concerns: No Meds Home Medications and Allergies Home Medications Medication Instructions Recorded Confirmed Type amitriptyline 10 mg tablet 10 mg PO HS 03/23/21 03/31/24 History empagliflozin 25 mg tablet 25 mg PO DAILY 03/23/21 03/31/24 History (Jardiance) oxycodone-acetaminophen 7.5 mg-325 1 tablet PO DIRECTED 03/23/21 03/31/24 History mg tablet atorvastatin 40 mg tablet 1 tablet PO DAILY 01/24/22 03/31/24 History perindopril erbumine 4 mg tablet 1 tablet PO DAILY 01/24/22 03/31/24 History insulin aspart U-100 100 unit/mL 8
[2024-03-31] MEDS: oxyCODONE HCL (*CRX) 2.5 MG TAB IR PO (23:28)
[2024-03-31] MEDS: AMITRIPTYLINE HCL 10 MG TABLET PO (23:29)
[2024-03-31] MEDS: oxyCODONE/ACETAMINOPHEN (*CRX) 5-325 MG TABLET 1 TABLET PO (23:29)
[2024-04-01] VITALS (8 sets, daily range): BP systolic 87–123; BP diastolic 49–57; PULSE 60–74; RESP 17–18; TEMP 36.2–36.8; O2SAT 94–95
--- NOTE | 2024-04-01 | ECHO_ITS ---
Patient Info Name: Ryan Ortega Age: 69 years : 1955 Gender: Male Ht: 69 in Wt: 166 lbs BSA: 1.92 m2 HR: 63 bpm BP: 123 / 47 mmHg Heart Rhythm: Sinus Rhythm Technical Quality: Fair Exam Date: 04/01/2024 2:26 PM Exam Location: Echo Lab Patient Status: Outpatient Admit Date: 03/31/2024 Staff Ordering Physician: Jody Richard APRN [employer] Installer: Mildred Merrill RDCS Attending Provider: Jody Richard APRN Referring Physician: Jose Manuel ARANGO; Exam Type: CA echo dop bubble study w con Study Info Indications - stroke vs tia Complete two-dimentional, color flow and Doppler transthoracic echocardiogram is performed with agitated saline and with contrast to opacify the left ventricle and to improve the delineation of the left ventricle endocardial borders. Contrast/Agitated Saline Contrast/Ag. Saline: Definity Amount: 2.00 ml Administered By: Mildred Merrill RDCS Existing IV Access: Yes IV Access Condition: patent with no signs of infiltration Contrast/Ag. Saline: Agitated Saline Amount: 20.00 ml Existing IV Access: Yes IV Access Condition: patent with no signs of infiltration Summary 1. Left ventricular chamber dimension is normal. 2. Left ventricular systolic function is normal, estimated at 55-60%. 3. Right ventricular systolic function is normal. 4. Intact interatrial septum visualized by color flow and agitated saline imaging. Negative bubble study. 5. The mitral valve annulus is severely calcified. 6. There is trace mitral valve regurgitation. 7. There is trace tricuspid valve regurgitation. Left Ventricle Left ventricular chamber dimension is normal. Left ventricular systolic function is normal, estimated at 55-60%. There is no increased left ventricular wall thickness. The left ventricular diastolic function is abnormal. Right Ventricle Right ventricular chamber dimension is normal. Right ventricular systolic function is normal. Left Atria Left atrial chamber dimension is normal. Right Atria Right atrial chamber dimension is normal. Atrial Septum Intact interatrial septum visualized by color flow and agitated saline imaging. Negative bubble study. Aortic Valve The aortic valve is not well visualized. There is no aortic valve stenosis. There is no aortic valve regurgitation. Pulmonic Valve The pulmonic valve is not well visualized. There is no pulmonic regurgitation. Mitral Valve There is trace mitral valve regurgitation. The mitral valve annulus is severely calcified. Tricuspid Valve There is trace tricuspid valve regurgitation. Pericardium/Pleural There is no pericardial effusion. Inferior Vena Cava Normal inferior vena cava with >50% collapse upon inspiration consistent with normal right atrial pressure, 3 mmHg. Aorta The aortic root size at the sinus of Valsalva is normal. Left Ventricular Outflow Tract Name Value Normal LVOT 2D LVOT Diameter 2.0 cm LVOT Doppler LVOT Peak Gradient 4 mmHg LVOT Mean Gradient 2 mmHg LVOT VTI 20 cm LVOT VTI/AV VTI Ratio
[2024-04-01] MEDS: oxyCODONE HCL (*CRX) 2.5 MG TAB IR PO ×2 (05:39→12:22)
[2024-04-01] MEDS: oxyCODONE/ACETAMINOPHEN (*CRX) 5-325 MG TABLET 1 TABLET PO ×2 (05:39→12:22)
[2024-04-01 06:04] LABS: Hematocrit 55.4 % (42.0-52.0); Mean Corpuscular HGB Conc 34.3 g/dl (32-36); Mean Corpuscular Hemoglobin 33.2 pg (26-34); Mean Corpuscular Volume 96.7 fl (80-100); Mean Platelet Volume 9.9 fl (7.4-10.4); Platelet Count Result 211 k/mm3 (150-375); Red Blood Count 5.73 M/mm3 (4.6-6.20); Red Cell Distribution Width 12.1 % (11.5-14.5); White Blood Count 9.1 K/mm3 (4.5-10.0)
[2024-04-01] MEDS: ALPRAZolam (*CRX) 0.25 MG TABLET PO (06:05)
[2024-04-01 06:15] LABS: Alanine Aminotransferase 68 U/L (6-50); Albumin Level 4.2 g/dL (3.5-5.1); Alkaline Phosphatase 90 U/L (38-126); Anion Gap 9 mmol/L (4-12); Aspartate Amino Transferase 61 U/L (17-59); Bilirubin,Total 0.7 mg/dL (0.2-1.3); Blood Urea Nitrogen 15 mg/dL (9-20); Calcium 8.9 mg/dL (8.4-10.2); Carbon Dioxide 28 mmol/L (22-30); Chloride 100 mmol/L (98-107); Estimated CRCL calculation 102 ml/min; Estimated Glomerular Filt Rate > 60; Glucose 110 mg/dL (65-110); Magnesium 2.1 mg/dL (1.6-2.3); Potassium 4.4 mmol/L (3.4-5.0); Sodium 137 mmol/L (137-145)
--- NOTE | 2024-04-01 06:15 | PC.NURSE ---
Patient off floor to MRI via wheelchair.
[2024-04-01 06:46] LABS: Hemoglobin A1C 8.4 % (<5.7)
--- NOTE | 2024-04-01 07:21 | PM.IMPN ---
Progress Note: A&P Assessment and Plan (1) Right arm numbness: Code(s): R20.0 - Anesthesia of skin Status: Acute Assessment and Plan: Concerns for stroke versus TIA versus cervical radiculopathy. CT shows complete occlusion of the left internal carotid artery Lipid panel, TSH, and Hemoglobin A1C MRI cervical spine,brain, and brain stem. Patient had difficulty tolerating the MRI after low dose xanax. Will see if giving him Ativan will help obtain imaging. ECHO with bubble study pending Atorvastatin 40 mg daily and aspirin Neurology consult and rec's appreciated (2) Occlusion of left internal carotid artery: Code(s): I65.22 - Occlusion and stenosis of left carotid artery Status: Acute Assessment and Plan: Complete occlusion of the left internal carotid artery and right ICA is about 50%. Patient was outside the window for pharmacological intervention. See above. (3) Type 2 diabetes mellitus with insulin therapy: Code(s): E11.9 - Type 2 diabetes mellitus without complications; Z79.4 - nursing home (current) use of insulin Status: Acute Assessment and Plan: Hemoglobin A1C is 8.4%. Patient is on Jardiance 25 mg daily, Toujeo 10 units daily, and Aspart 10 units BID per recent pharmacy transcripts. AC/HS accu checks, hypoglycemia protocol SSI moderate dose, continue Jardiance Lantus 11 units (4) Hypertension: Code(s): I10 - Essential (primary) hypertension Status: Acute Assessment and Plan: Blood pressures 123/57 mmhg, HR 63 Continue lisinopril 10 mg daily Plan DVT prophylaxis: SCD Glycemic control: SSI moderate dose with Lantus 11 units Code Status: Full Code Disposition: 69-year-old male who presents with right upper extremity weakness. CT angiogram showed a complete occlusion of left internal carotid artery with right ICA 50% occlusion. Patient was outside of the window for pharmacological intervention. He is being admitted for stroke workup with neuro consult. Medication reconciliation obtained via the following: Nurse completed on admission The file time of this note does not necessarily represent the time the patient was seen. Subjective Date/time seen: 04/01/24 07:21 Interval history: This is a pleasant 69-year-old male with history of stroke, chronic occlusion of the left internal carotid artery, hypertension, hyperlipidemia, and insulin-dependent type 2 diabetes mellitus who presented to the emergency department via private vehicle for evaluation of right upper extremity numbness. 04/01: Patient reports going to bed Sunday night feeling well. He woke up Sunday and was having impaired sensation to his right upper extremity. He states it felt like his arm was asleep. He is also reporting slight decreased sensation to had a right-sided his face. He has a congested cough which he says is nonproductive. He denies shortness of breath, chest pain, fever, or chills. He is wanting to go home today. Review of Systems Review of Systems: All systems reviewed & are unremarkable except as noted in HPI and below Exam Narrative: General: well appearing, appears stated age. HEENT: normocephalic, atraumatic. Mucous membranes moist. EOMI, PERRLA, bilateral sclera anicteric, no conjunctival injection. Neck supple without JVD, lymphadenopathy, or bruit. Respiratory: Coarse to right lower lobe on auscultation bilaterally. No rales/rhonic/wheezes. Cardiovascular: Regular rate and rhythm, normal S1-S2 upon auscultation. No murmurs, rubs, or clicks. PMI is nondisplaced, capillary refill less than 3 second. Abdomen: Soft, round, no pulsatile masses, nondistended and nontender. No rebound, no guarding. No CVA tenderness, no hepatosplenomegaly. Bowel sounds present to all four quadrants. No high pitch or tinkling sounds, resonant to percus
[2024-04-01 08:04] LABS: Glucose Point of Care 121 mg/dl (65-105)
[2024-04-01 08:14] LABS: Cholesterol 106 mg/dL (0-200); HDL Direct 36 mg/dL; Triglycerides 90 mg/dL (<150)
[2024-04-01 08:25] LABS: LDL Cholesterol Direct 44 mg/dL
[2024-04-01] MEDS: EMPAGLIFLOZIN 25 MG TABLET PO (08:51)
[2024-04-01] MEDS: lisinopriL 10 MG TABLET PO (08:52)
[2024-04-01] MEDS: ASPIRIN 81 MG ENTERIC TABLET PO (08:52)
[2024-04-01] MEDS: ATORVASTATIN 40 MG TABLET PO (08:52)
[2024-04-01] MEDS: TIZANIDINE HCL 4 MG TABLET PO ×2 (08:52→12:19)
[2024-04-01 12:12] LABS: Glucose Point of Care 351 mg/dl (65-105)
[2024-04-01] MEDS: INSULIN ASPART (*BKC) 100 UNITS/ML SUB-Q (12:20)
[2024-04-01] MEDS: LORazepam INJ (*CRX) 2 MG/ML VIAL 0.5 MG IV PUSH (12:22)
--- NOTE | 2024-04-01 12:35 | WPDNEURCNPN ---
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 Complaint of right upper extremity numbness 2. Status post left internal carotid artery occlusion 3. Hypertension 4. Insulin-dependent diabetes mellitus 5. Hyperlipidemia suggestion to go ahead with the echocardiogram and EMG nerve conduction study as an outpatient continuation of his medication as such including aspirin 81mg daily and Plavix 75mg daily just for 6 weeks. Consult date: 04/01/24 HPI: Ryan Ortega is a 69 year old male Admitted to the hospital through the emergency room with complaints of numbness and clumsiness of the right hand since yesterday with last well known at 1:00 a.m. on Sunday morning gave no history of associated weakness or numbness of the right lower extremity, or facial droop, though mention that sensation is off on his right hand and having difficulties in gripping. Medications include amitriptyline 10mg daily, Jardiance 25mg daily, atorvastatin 40mg daily, parent Toprol 4mg daily aspirin 81mg daily, and insulin in addition to tizanidine 4mg 3 times a day reportedly he is allergic to dulaglutide, has history of years smoked 35 with smoking pack years of 52.5 and currently everyday smoker though stopped drinking about 2 years ago initial exam in the emergency room grossly nonfocal with vital signs normal except blood pressure 191/85 repeat 150/77 admitted to the hospital for the diagnosis of cervical radiculopathy versus TIA, CT scan of the brain showed no bleed except old infarct in left frontal lobe chest x-ray negative EKG without atrial fibrillation routine lab studies normal except blood sugar 237 ALT 64, initial CT scan as mentioned above old infarct in left frontal lobe, CTA revealed complete occlusion of the left internal carotid artery and the right 1 about 50% narrowing visualized aortic at and branching vessels were mildly atheromatous but no stenosis vertebral basilar system was intact, chest x-ray negative. [facility] Past Medical History Medical History (Updated 03/31/24 @ 23:51 by Holly Bain PA-C) Cerebrovascular accident (2021) Residual right arm weakness. Hyperlipidemia Hypertension Occlusion of left internal carotid artery Pancreatitis (2020) Type 2 diabetes mellitus with insulin therapy Surgical History Surgical History (Updated 03/31/24 @ 23:12 by Holly Bain PA-C) History of colonoscopy with polypectomy History of open reduction and internal fixation (ORIF) procedure Right leg. History of spinal surgery History of total right hip arthroplasty Family History Family History Mother Old age Father Lung cancer Sibling Diabetes mellitus Social History Social History (Updated 03/31/24 @ 23:12 by Holly Bain PA-C) Social History: Surrogate medical decision maker: Petey Ortega, sibling. Code status: Full code. Smoking packs per day: 1.5 Smoking cigarettes per day: 30.0 Years smoked: 35 Smoking pack-years: 52.50 Smoking status: Former smoker Tobacco type: cigarettes Smoking end date: 07/22/12 Alcohol intake: never Alcohol use details: quit 2 years ago Substance use: never Substance use type: does not use Do You Fe
[2024-04-01] MEDS: PERFLUTREN LIPID MICROSPHERES 1.5 ML VIAL DILUTED TO 10 ML TOTAL VOLUME IV PUSH (15:30)
--- NOTE | 2024-04-01 15:51 | IVDEFINITY ---
Prior to administration of IV Definity the patient was educated on the risks and benefits of the imaging enhancing agent including potential adverse side effects. The patient verbalized understanding. Allergies were verified. No exclusion criteria were identified and at least one of the following inclusion criteria were met: 1) physician request, 2) patient technically difficult to image (per the [place] [employer] guidelines of two or more segments not discernable within the apical view), or 3) questionable left ventricular function. ?
--- NOTE | 2024-04-10 17:03 | PM.DS ---
DS: Admitting Diagnosis Discharge Date 04/01/24 Admitting Diagnosis right arm numbness DS: Discharge Diagnosis Discharge Diagnosis (1) Right arm numbness: Code(s): R20.0 - Anesthesia of skin Status: Acute Assessment and Plan: Concerns for stroke versus TIA versus cervical radiculopathy. CT shows complete occlusion of the left internal carotid artery Lipid panel, TSH, and Hemoglobin A1C MRI cervical spine,brain, and brain stem. Patient had difficulty tolerating the MRI after low dose xanax. Will see if giving him Ativan will help obtain imaging. ECHO with bubble study pending Atorvastatin 40 mg daily and aspirin Neurology consult and rec's appreciated (2) Occlusion of left internal carotid artery: Code(s): I65.22 - Occlusion and stenosis of left carotid artery Status: Acute Assessment and Plan: Complete occlusion of the left internal carotid artery and right ICA is about 50%. Patient was outside the window for pharmacological intervention. See above. (3) Type 2 diabetes mellitus with insulin therapy: Code(s): E11.9 - Type 2 diabetes mellitus without complications; Z79.4 - intermodal owner operator truck driver (current) use of insulin Status: Acute Assessment and Plan: Hemoglobin A1C is 8.4%. Patient is on Jardiance 25 mg daily, Toujeo 10 units daily, and Aspart 10 units BID per recent pharmacy transcripts. AC/HS accu checks, hypoglycemia protocol SSI moderate dose, continue Jardiance Lantus 11 units (4) Hypertension: Code(s): I10 - Essential (primary) hypertension Status: Acute Assessment and Plan: Blood pressures 123/57 mmhg, HR 63 Continue lisinopril 10 mg daily Plan DVT prophylaxis: SCD Glycemic control: SSI moderate dose with Lantus 11 units Code Status: Full Code Disposition: 69-year-old male who presents with right upper extremity weakness. CT angiogram showed a complete occlusion of left internal carotid artery with right ICA 50% occlusion. Patient was outside of the window for pharmacological intervention. He is being admitted for stroke workup with neuro consult. Medication reconciliation obtained via the following: Nurse completed on admission The file time of this note does not necessarily represent the time the patient was seen. DS: Summary Hospital Course Reason for hospitalization: TIA Hospital Course: This is a pleasant 69-year-old male with history of stroke, chronic occlusion of the left internal carotid artery, hypertension, hyperlipidemia, and insulin-dependent type 2 diabetes mellitus who presented to the emergency department via private vehicle for evaluation of right upper extremity numbness. The patient provides the following history. He went to bed at about 01:00 on Sunday. Upon waking later that day his right arm felt numb and he had troubles picking things up, almost as if it was not his own arm. This is the same arm that was affected in his previous stroke however function had returned to near normal. On exam he has pain on palpation of the right cervical paraspinous muscles which is not necessarily unusual for him. He has not had any recent falls or injuries. He also denies vertigo, vision changes, facial droop, and difficulty speaking and swallowing. At the time my evaluation his symptoms seem to be improving. In the ED: Blood pressure was as high as 191/85 in the ED but has improved. Labs were significant for WBC count of 10, glucose 237, ALT 64. Head CT showed old infarct in left frontal lobe. CTA of the head and neck showed complete occlusion of the left internal carotid artery with mild atheromatous disease of the right carotid bulb and proximal internal carotid artery without significant stenosis. Chest x-ray showed no acute cardiopulmonary disease. He is being admitted in this setting for close monitoring and ne
== END 2024-04-01 16:30 | disposition home or self-care (01) ==
LOC: ANHED 14:09 → ANH2MED 14:57
PROVIDERS: Physician Assistant; Admitting Provider General Practice; Emergency Provider Emergency Medicine; PCP Family Medicine; Visit Provider Nurse Practitioner Acute Care
DX: R20.0 Anesthesia of skin (principal); I65.22 Occlusion and stenosis of left carotid artery; I10 Essential (primary) hypertension; I69.351 Hemiplegia and hemiparesis following cerebral infarction affecting right dominant side; E78.5 Hyperlipidemia, unspecified; E11.9 Type 2 diabetes mellitus without complications; Z79.84 Long term (current) use of oral hypoglycemic drugs; Z79.891 Long term (current) use of opiate analgesic; Z79.82 Long term (current) use of aspirin; Z79.4 Long term (current) use of insulin; Z87.891 Personal history of nicotine dependence
CPT/HCPCS: 36415; 70450; 70496; 70498; 70553; 71045; 72141; 80053; 80061; 82607; 82948; 83036; 83735; 84443; 84484; 85025; 85027; 85610; 85730; 93005; 96374; 96375; 99285; A9270; A9577; C8929; G0378; J1815; J2060; Q9957; Q9967

== ENCOUNTER 2024-07-03 01:31 | Day surgery (SDC) | payer OTHER, SELFPAY ==
[2024-02-18 10:20] VITALS: BMI 23.1
--- NOTE | 2024-06-27 14:36 | PC.NURSE ---
Attempts to call pt multiple times with messages left. Spoke with friend listed as contact and she states she did give him message to call on 06/26/2024 and will relay the message again today. I did ask her to let him know if we do not hear from him by 06/30/2024 afternoon we will need to cancel and he will need to call office to reschedule.
[2024-06-30 15:57] VITALS: BMI 23.1
[2024-07-03 10:26] LABS: Glucose Point of Care 142 mg/dl (65-105)
[2024-07-03 10:31] VITALS: BP 105/61; PULSE 96; RESP 18; TEMP 36.2; O2SAT 98; BMI 23.3
--- NOTE | 2024-07-03 10:40 | WPDANESEPPF ---
Anes - Initial Pre Proc Eval Procedure: Operation Date: 07/03/24 11:30 Proposed Procedures p Colonoscopy - Kartik Zuñiga MD Date/Time: 07/03/24 10:40 Surgeon: Kartik Zuñiga MD Pre Op Diagnosis: Personal hx. colon polyps Patient Data Age: 69 Gender: M Height: 1.78 m Weight: 73.8 kg Last Vital Signs Temp 97.2 F L 07/03/24 10:31 Pulse 96 07/03/24 10:31 Resp 18 07/03/24 10:31 BP 105/61 07/03/24 10:31 Pulse Ox 98 07/03/24 10:31 O2 Del Method Room Air 07/03/24 10:31 Allergies Allergy/AdvReac Type Severity Reaction Status Date / Time dulaglutide Allergy Unknown Unknown Verified 07/03/24 10:26 Home Medications ?Medication ?Instructions ?Recorded ?Confirmed ?Type amitriptyline 10 mg tablet 10 mg PO HS 03/23/21 07/03/24 History empagliflozin 25 mg tablet 25 mg PO DAILY 03/23/21 07/03/24 History (Jardiance) oxycodone-acetaminophen 7.5 mg-325 1 tablet PO DIRECTED 03/23/21 07/03/24 History mg tablet atorvastatin 40 mg tablet 1 tablet PO DAILY 01/24/22 07/03/24 History perindopril erbumine 4 mg tablet 1 tablet PO DAILY 01/24/22 07/03/24 History insulin aspart U-100 100 unit/mL 8 unit subcut DAILY 02/18/24 07/03/24 History (3 mL) subcutaneous pen insulin glargine U-300 conc 300 10 unit subcut DAILY 02/18/24 07/03/24 History unit/mL (1.5 mL) subcutaneous pen (Toujeo SoloStar U-300 Insulin) tizanidine 4 mg tablet 4 mg PO TID 02/18/24 07/03/24 History aspirin 81 mg tablet 81 mg PO DAILY 03/31/24 07/03/24 History Laboratory Tests 07/03/24 10:21 POC Capillary Glucose 142 H mg/dl (65-105) Patient hx anesthesia problems: none Family hx anesthesia problems: none Results Review: All pre-operative results and documents have been reviewed as part of the pre-operative evaluation. [facility] Past Medical History Medical History (Updated 03/31/24 @ 23:51 by Holly Bain PA-C) Occlusion of left internal carotid artery Pancreatitis (2020) Type 2 diabetes mellitus with insulin therapy Hyperlipidemia Hypertension Cerebrovascular accident (2021) Residual right arm weakness. Surgical History Surgical History (Updated 03/31/24 @ 23:12 by Holly Bain PA-C) History of open reduction and internal fixation (ORIF) procedure Right leg. History of spinal surgery History of total right hip arthroplasty History of colonoscopy with polypectomy Family History Family History Mother Old age Father Lung cancer Sibling Diabetes mellitus Social History Social History (Updated 03/31/24 @ 23:12 by Holly Bain PA-C) Social History: Surrogate medical decision maker: Petey Ortega, marcia. Code status: Full code. Smoking packs per day: 1.5 Smoking cigarettes per day: 30.0 Years smoked: 35 Smoking pack-years: 52.50 Smoking status: Former smoker Tobacco type: cigarettes Smoking end date: 07/22/12 Alcohol intake: never Alcohol use details: quit 2 years ago Substance use: never Substance use type: does not use Do You Feel Safe in your Home?: Yes Lack of Transportation: No Lack of Food: Never True Current Housing: I Have Housing Concerned About Future Housing: No Difficulty Paying Gas/Electric Bills: No Difficulty Paying for Meds: No Currently Unemployed: No Education: High School Diploma/GED Difficulty w/ Childcare or Family Care: No Living arrangements: alone Spiritual care concerns: No Anes - Eval Final PreProcedure Day of Procedure 07/03/24 10:40 Patient weight: normal Heart: regular rate and rhythm Lungs: clear to auscultation Airway: Mallampati scale class II Neurological: alert and oriented Last oral intake: >/= 8 hours ASA classification: III Emergent: no Anesthetic plan: proceed Anesthesia type and monitoring: general GIVS and standard monitoring Results Review: All pre-operative results and documents have been reviewed as part of the pre-operative evaluation. Informed Consent: The patient's anesthetic plan and its attendant risks and benefits were discussed with the patient/family/POA. Questions were solicited and answers provided to the satisfaction of the patient/family/POA.
[2024-07-03] MEDS: LACTATED RINGERS 1,000 ML 150 ML IV CONT (10:47)
--- NOTE | 2024-07-03 10:55 | PM.HPGS ---
History of Present Illness History of Present Illness Consent: Risks, benefits, and alternatives have been discussed and questions answered. Patient agrees to proceed with procedure. Chief complaint: Personal hx. colon polyps Narrative: Ryan Ortega is a 69 year old male with colon polyp 6 years ago Review of Systems Review of Systems: All systems reviewed & are unremarkable except as noted in HPI and below PMFSH Past Medical History Medical History (Updated 03/31/24 @ 23:51 by Holly Bain PA-C) Occlusion of left internal carotid artery Pancreatitis (2020) Type 2 diabetes mellitus with insulin therapy Hyperlipidemia Hypertension Cerebrovascular accident (2021) Residual right arm weakness. Surgical History Surgical History (Updated 03/31/24 @ 23:12 by Holly Bain PA-C) History of open reduction and internal fixation (ORIF) procedure Right leg. History of spinal surgery History of total right hip arthroplasty History of colonoscopy with polypectomy Family History Family History Mother Old age Father Lung cancer Sibling Diabetes mellitus Social History Social History (Updated 03/31/24 @ 23:12 by Holly Bain PA-C) Social History: Surrogate medical decision maker: Petey Ortega, marcia. Code status: Full code. Smoking packs per day: 1.5 Smoking cigarettes per day: 30.0 Years smoked: 35 Smoking pack-years: 52.50 Smoking status: Former smoker Tobacco type: cigarettes Smoking end date: 07/22/12 Alcohol intake: never Alcohol use details: quit 2 years ago Substance use: never Substance use type: does not use Do You Feel Safe in your Home?: Yes Lack of Transportation: No Lack of Food: Never True Current Housing: I Have Housing Concerned About Future Housing: No Difficulty Paying Gas/Electric Bills: No Difficulty Paying for Meds: No Currently Unemployed: No Education: High School Diploma/GED Difficulty w/ Childcare or Family Care: No Living arrangements: alone Spiritual care concerns: No Meds Home Medications and Allergies Home Medications ?Medication ?Instructions ?Recorded ?Confirmed ?Type amitriptyline 10 mg tablet 10 mg PO HS 03/23/21 07/03/24 History empagliflozin 25 mg tablet 25 mg PO DAILY 03/23/21 07/03/24 History (Jardiance) oxycodone-acetaminophen 7.5 mg-325 1 tablet PO DIRECTED 03/23/21 07/03/24 History mg tablet atorvastatin 40 mg tablet 1 tablet PO DAILY 01/24/22 07/03/24 History perindopril erbumine 4 mg tablet 1 tablet PO DAILY 01/24/22 07/03/24 History insulin aspart U-100 100 unit/mL 8 unit subcut DAILY 02/18/24 07/03/24 History (3 mL) subcutaneous pen insulin glargine U-300 conc 300 10 unit subcut DAILY 02/18/24 07/03/24 History unit/mL (1.5 mL) subcutaneous pen (Toujeo SoloStar U-300 Insulin) tizanidine 4 mg tablet 4 mg PO TID 02/18/24 07/03/24 History aspirin 81 mg tablet 81 mg PO DAILY 03/31/24 07/03/24 History Allergies Allergy/AdvReac Type Severity Reaction Status Date / Time dulaglutide Allergy Unknown Unknown Verified 07/03/24 10:26 Vital Signs Vital Signs - 24 hr 07/03/24 10:31 Temperature 97.2 F L Pulse Rate 96 Respiratory Rate 18 Blood Pressure 105/61 Pulse Oximetry 98 Oxygen Delivery Room Air Exam Const: General: comfortable and no acute distress HENMT: Face/Nose/Sinus: Normal nares present Eyes: General: appearance normal, both eyes and all related structures Neck: Neck: no JVD Resp: Auscultation: clear to auscultation bilaterally Cardio: Rate: regular rate Rhythm: regular rhythm GI: Inspection: non-distended GI Palp: Yes Soft to palpation Skin: General skin exam: normal color Neuro: General: gait normal Speech: normal speech Extrem: General: normal to inspection Psych: Mental Status: mental status grossly normal Assessment and Plan Assessment and plan (1) Hx of colonic polyps: Code(s): Z86.010 - Personal history of colon polyps Status: Acute Assessment and Plan: colonoscopy
[2024-07-03 11:20] VITALS: BP 88/53; PULSE 76; RESP 18; O2SAT 96
[2024-07-03 11:30] VITALS: BP 97/43; PULSE 74; RESP 18; O2SAT 97
[2024-07-03 11:40] VITALS: BP 97/53; PULSE 74; RESP 18; O2SAT 98
== END 2024-07-03 11:57 | disposition home or self-care (01) ==
PROVIDERS: PCP Family Medicine; Visit Provider Internal Medicine Gastroenterology
PROC: 0DJD8ZZ Inspection of Lower Intestinal Tract, Via Natural or Artificial Opening Endoscopic (ICD-10-PCS; CPT 45378; principal; 2024-07-03 11:30)
DX: Z12.11 Encounter for screening for malignant neoplasm of colon (principal); D12.3 Benign neoplasm of transverse colon; D12.4 Benign neoplasm of descending colon; E11.9 Type 2 diabetes mellitus without complications; E78.5 Hyperlipidemia, unspecified; I10 Essential (primary) hypertension; I69.351 Hemiplegia and hemiparesis following cerebral infarction affecting right dominant side; Z87.891 Personal history of nicotine dependence; Z79.4 Long term (current) use of insulin
CPT/HCPCS: 45385; 82948; 88305; J2003; J2704; J7120